=== PATIENT | male | born 1985 ===

== ENCOUNTER 2019-01-13 12:20 | Day surgery (SDC) | payer OTHER | END 2019-01-13 22:58 | disposition home or self-care (01) | LOC: WOUND 12:20 | DX: L89.892 Pressure ulcer of other site, stage 2 (principal); Q05.9 Spina bifida, unspecified; Z91.040 Latex allergy status | CPT/HCPCS: G0463 ==

== ENCOUNTER 2019-01-20 11:05 | Day surgery (SDC) | payer OTHER | END 2019-01-20 23:45 | disposition home or self-care (01) | LOC: WOUND 11:05 | DX: L89.892 Pressure ulcer of other site, stage 2 (principal); Q05.9 Spina bifida, unspecified; Z91.040 Latex allergy status ==

== ENCOUNTER 2019-01-29 11:02 | Day surgery (SDC) | payer OTHER | END 2019-01-29 23:41 | disposition home or self-care (01) | LOC: WOUND 11:02 | DX: L89.892 Pressure ulcer of other site, stage 2 (principal); Q05.9 Spina bifida, unspecified | CPT/HCPCS: G0463 ==

== ENCOUNTER 2019-02-05 14:36 | Day surgery (SDC) | payer OTHER | END 2019-02-05 22:46 | disposition home or self-care (01) | LOC: WOUND 14:36 | DX: L89.892 Pressure ulcer of other site, stage 2 (principal); Q05.9 Spina bifida, unspecified ==

== ENCOUNTER 2019-02-11 00:29 | Day surgery (SDC) | payer OTHER | END 2019-02-11 23:03 | disposition home or self-care (01) | LOC: WOUND 00:29 | DX: I96 Gangrene, not elsewhere classified (principal); L89.152 Pressure ulcer of sacral region, stage 2; Q05.4 Unspecified spina bifida with hydrocephalus; N31.9 Neuromuscular dysfunction of bladder, unspecified; Z98.2 Presence of cerebrospinal fluid drainage device; Z91.040 Latex allergy status | CPT/HCPCS: G0463 ==

== ENCOUNTER 2019-02-24 00:33 | Day surgery (SDC) | payer OTHER | END 2019-02-24 22:43 | disposition home or self-care (01) | LOC: WOUND 00:33 | DX: I96 Gangrene, not elsewhere classified (principal); L89.152 Pressure ulcer of sacral region, stage 2; Q05.2 Lumbar spina bifida with hydrocephalus; K59.2 Neurogenic bowel, not elsewhere classified; Z93.3 Colostomy status; Z98.2 Presence of cerebrospinal fluid drainage device; Z91.040 Latex allergy status; Z79.899 Other long term (current) drug therapy | CPT/HCPCS: G0463 ==

== ENCOUNTER 2019-03-10 00:17 | Day surgery (SDC) | payer OTHER | END 2019-03-10 22:51 | disposition home or self-care (01) | LOC: WOUND 00:17 | DX: L89.152 Pressure ulcer of sacral region, stage 2 (principal); Q05.9 Spina bifida, unspecified ==

== ENCOUNTER 2019-03-17 00:17 | Day surgery (SDC) | payer OTHER | END 2019-03-17 23:04 | disposition home or self-care (01) | LOC: WOUND 00:17 | DX: L89.152 Pressure ulcer of sacral region, stage 2 (principal); Q05.9 Spina bifida, unspecified | CPT/HCPCS: G0463 ==

== ENCOUNTER 2019-03-24 00:19 | Day surgery (SDC) | payer OTHER | END 2019-03-24 22:52 | disposition home or self-care (01) | LOC: WOUND 00:19 | DX: L89.152 Pressure ulcer of sacral region, stage 2 (principal); Q05.9 Spina bifida, unspecified | CPT/HCPCS: G0463 ==

== ENCOUNTER 2019-03-31 00:24 | Day surgery (SDC) | payer OTHER | END 2019-03-31 22:01 | LOC: WOUND 00:24 | DX: L89.152 Pressure ulcer of sacral region, stage 2 (principal); Q05.9 Spina bifida, unspecified ==

== ENCOUNTER 2019-04-08 00:11 | Day surgery (SDC) | payer OTHER | END 2019-04-08 22:43 | disposition home or self-care (01) | LOC: WOUND 00:11 | DX: L89.152 Pressure ulcer of sacral region, stage 2 (principal); Q05.9 Spina bifida, unspecified ==

== ENCOUNTER 2019-04-14 03:18 | Day surgery (SDC) | payer OTHER | END 2019-04-14 22:49 | disposition home or self-care (01) | LOC: WOUND 03:18 | DX: L89.152 Pressure ulcer of sacral region, stage 2 (principal); Q05.9 Spina bifida, unspecified ==

== ENCOUNTER 2019-04-21 | Day surgery (SDC) | payer OTHER | END 2019-05-10 22:37 | disposition home or self-care (01) | LOC: WOUND | DX: L89.152 Pressure ulcer of sacral region, stage 2 (principal); Q05.9 Spina bifida, unspecified ==

== ENCOUNTER 2019-04-28 00:33 | Day surgery (SDC) | payer OTHER | END 2019-04-28 23:12 | disposition home or self-care (01) | LOC: WOUND 00:33 | DX: L89.892 Pressure ulcer of other site, stage 2 (principal); Q05.9 Spina bifida, unspecified | CPT/HCPCS: G0463 ==

== ENCOUNTER 2019-05-12 00:23 | Day surgery (SDC) | payer OTHER | END 2019-05-12 22:37 | disposition home or self-care (01) | LOC: WOUND 00:23 | DX: L89.152 Pressure ulcer of sacral region, stage 2 (principal); Q05.9 Spina bifida, unspecified; Z91.040 Latex allergy status ==

== ENCOUNTER 2019-05-26 00:27 | Day surgery (SDC) | payer OTHER | END 2019-05-26 22:38 | disposition home or self-care (01) | LOC: WOUND 00:27 | DX: L89.892 Pressure ulcer of other site, stage 2 (principal); Q05.9 Spina bifida, unspecified ==

== ENCOUNTER 2019-06-16 00:16 | Day surgery (SDC) | payer OTHER | END 2019-06-16 22:39 | disposition home or self-care (01) | LOC: WOUND 00:16 | DX: L89.152 Pressure ulcer of sacral region, stage 2 (principal); Q05.9 Spina bifida, unspecified ==

== ENCOUNTER 2019-07-07 00:24 | Day surgery (SDC) | payer OTHER | END 2019-07-07 22:50 | disposition home or self-care (01) | LOC: WOUND 00:24 | DX: L89.892 Pressure ulcer of other site, stage 2 (principal); Q05.9 Spina bifida, unspecified; N31.9 Neuromuscular dysfunction of bladder, unspecified; K59.2 Neurogenic bowel, not elsewhere classified ==

== ENCOUNTER 2019-07-15 00:11 | Day surgery (SDC) | payer OTHER | END 2019-07-15 23:16 | disposition home or self-care (01) | LOC: WOUND 00:11 | DX: L89.892 Pressure ulcer of other site, stage 2 (principal); Q05.9 Spina bifida, unspecified | CPT/HCPCS: G0463 ==

== ENCOUNTER 2019-07-28 00:14 | Day surgery (SDC) | payer OTHER | END 2019-07-28 22:55 | disposition home or self-care (01) | LOC: WOUND 00:14 | DX: L89.892 Pressure ulcer of other site, stage 2 (principal); Q05.9 Spina bifida, unspecified | CPT/HCPCS: G0463 ==

== ENCOUNTER 2019-09-16 00:28 | Day surgery (SDC) | payer OTHER | END 2019-09-16 22:37 | disposition home or self-care (01) | LOC: WOUND 00:28 | DX: L89.892 Pressure ulcer of other site, stage 2 (principal); Q05.9 Spina bifida, unspecified | CPT/HCPCS: G0463 ==

== ENCOUNTER 2019-10-20 00:28 | Day surgery (SDC) | payer OTHER | END 2019-10-20 22:37 | disposition home or self-care (01) | LOC: WOUND 00:28 | DX: L89.892 Pressure ulcer of other site, stage 2 (principal); Q05.9 Spina bifida, unspecified | CPT/HCPCS: G0463 ==

== ENCOUNTER 2019-11-11 00:15 | Day surgery (SDC) | payer OTHER | END 2019-11-11 22:35 | disposition home or self-care (01) | LOC: WOUND 00:15 | DX: L89.892 Pressure ulcer of other site, stage 2 (principal); Q05.9 Spina bifida, unspecified | CPT/HCPCS: G0463 ==

== ENCOUNTER 2019-12-02 00:47 | Day surgery (SDC) | payer OTHER | END 2019-12-02 08:41 | disposition home or self-care (01) | LOC: WOUND 00:47 | DX: L89.892 Pressure ulcer of other site, stage 2 (principal); Q05.9 Spina bifida, unspecified ==

== ENCOUNTER 2019-12-22 02:24 | Day surgery (SDC) | payer OTHER | END 2019-12-22 23:16 | disposition home or self-care (01) | LOC: WOUND 02:24 | DX: I96 Gangrene, not elsewhere classified (principal); L89.152 Pressure ulcer of sacral region, stage 2; Q05.4 Unspecified spina bifida with hydrocephalus; N31.9 Neuromuscular dysfunction of bladder, unspecified; K59.2 Neurogenic bowel, not elsewhere classified; Z93.3 Colostomy status; Z98.2 Presence of cerebrospinal fluid drainage device; Z91.040 Latex allergy status | CPT/HCPCS: G0463 ==

== ENCOUNTER 2020-01-18 00:34 | Day surgery (SDC) | payer OTHER | END 2020-01-18 22:34 | disposition home or self-care (01) | LOC: WOUND 00:34 | DX: I96 Gangrene, not elsewhere classified (principal); L89.152 Pressure ulcer of sacral region, stage 2; Q05.4 Unspecified spina bifida with hydrocephalus; N31.9 Neuromuscular dysfunction of bladder, unspecified; Z98.2 Presence of cerebrospinal fluid drainage device; Z93.3 Colostomy status; Z91.040 Latex allergy status | CPT/HCPCS: G0463 ==

== ENCOUNTER 2020-02-01 00:39 | Day surgery (SDC) | payer OTHER | END 2020-02-01 06:19 | disposition home or self-care (01) | LOC: WOUND 00:39 | DX: I96 Gangrene, not elsewhere classified (principal); L89.152 Pressure ulcer of sacral region, stage 2; Q05.4 Unspecified spina bifida with hydrocephalus; N31.9 Neuromuscular dysfunction of bladder, unspecified; K59.2 Neurogenic bowel, not elsewhere classified; Z93.3 Colostomy status; Z98.2 Presence of cerebrospinal fluid drainage device; Z91.040 Latex allergy status ==

== ENCOUNTER 2020-02-18 01:50 | Day surgery (SDC) | payer OTHER | END 2020-02-18 11:20 | disposition home or self-care (01) | LOC: WOUND 01:50 | DX: L89.152 Pressure ulcer of sacral region, stage 2 (principal); Q05.4 Unspecified spina bifida with hydrocephalus; N31.9 Neuromuscular dysfunction of bladder, unspecified; K59.2 Neurogenic bowel, not elsewhere classified; Z98.2 Presence of cerebrospinal fluid drainage device; Z93.3 Colostomy status | CPT/HCPCS: 87070; 87075; 87077; 87147; 87186; 87205 ==

== ENCOUNTER 2020-02-24 00:18 | Day surgery (SDC) | payer OTHER | END 2020-02-24 23:51 | disposition home or self-care (01) | LOC: WOUND 00:18 | DX: L89.892 Pressure ulcer of other site, stage 2 (principal); Q05.9 Spina bifida, unspecified; N31.9 Neuromuscular dysfunction of bladder, unspecified; K59.2 Neurogenic bowel, not elsewhere classified; Z93.3 Colostomy status | CPT/HCPCS: G0463 ==

== ENCOUNTER 2020-03-02 01:33 | Day surgery (SDC) | payer OTHER | END 2020-03-02 22:36 | disposition home or self-care (01) | LOC: WOUND 01:33 | DX: L89.152 Pressure ulcer of sacral region, stage 2 (principal); L89.892 Pressure ulcer of other site, stage 2; Q05.9 Spina bifida, unspecified | CPT/HCPCS: G0463 ==

== ENCOUNTER 2020-03-10 12:27 | Day surgery (SDC) | payer OTHER | END 2020-03-10 22:42 | disposition home or self-care (01) | LOC: WOUND 12:27 | DX: L89.153 Pressure ulcer of sacral region, stage 3 (principal); Q05.9 Spina bifida, unspecified | CPT/HCPCS: G0463 ==

== ENCOUNTER 2020-03-23 00:37 | Day surgery (SDC) | payer OTHER | END 2020-03-23 22:45 | disposition home or self-care (01) | LOC: WOUND 00:37 | DX: L89.152 Pressure ulcer of sacral region, stage 2 (principal); Q05.4 Unspecified spina bifida with hydrocephalus; N31.9 Neuromuscular dysfunction of bladder, unspecified; K59.2 Neurogenic bowel, not elsewhere classified; Z93.3 Colostomy status ==

== ENCOUNTER 2020-04-06 00:17 | Day surgery (SDC) | payer OTHER | END 2020-04-06 23:43 | disposition home or self-care (01) | LOC: WOUND 00:17 | DX: L89.152 Pressure ulcer of sacral region, stage 2 (principal); Q05.9 Spina bifida, unspecified; Z93.3 Colostomy status | CPT/HCPCS: G0463 ==

== ENCOUNTER 2020-04-13 00:14 | Day surgery (SDC) | payer OTHER | END 2020-04-13 23:00 | disposition home or self-care (01) | LOC: WOUND 00:14 | DX: L89.152 Pressure ulcer of sacral region, stage 2 (principal); Q05.4 Unspecified spina bifida with hydrocephalus; N31.9 Neuromuscular dysfunction of bladder, unspecified; K59.2 Neurogenic bowel, not elsewhere classified; Z93.3 Colostomy status | CPT/HCPCS: G0463 ==

== ENCOUNTER 2020-04-27 00:22 | Day surgery (SDC) | payer OTHER | END 2020-04-27 23:00 | disposition home or self-care (01) | LOC: WOUND 00:22 | DX: L89.152 Pressure ulcer of sacral region, stage 2 (principal); Q05.9 Spina bifida, unspecified ==

== ENCOUNTER 2020-05-31 00:37 | Day surgery (SDC) | payer OTHER | END 2020-05-31 22:42 | disposition home or self-care (01) | LOC: WOUND 00:37 | DX: S31.000D Unspecified open wound of lower back and pelvis without penetration into retroperitoneum, subsequent encounter (principal); X58.XXXD Exposure to other specified factors, subsequent encounter; Q05.9 Spina bifida, unspecified | CPT/HCPCS: G0463 ==

== ENCOUNTER 2020-07-05 03:25 | Day surgery (SDC) | payer OTHER | END 2020-07-05 23:17 | disposition home or self-care (01) | LOC: WOUND 03:25 | DX: L89.153 Pressure ulcer of sacral region, stage 3 (principal); S31.000D Unspecified open wound of lower back and pelvis without penetration into retroperitoneum, subsequent encounter; X58.XXXD Exposure to other specified factors, subsequent encounter; Q05.9 Spina bifida, unspecified | CPT/HCPCS: G0463 ==

== ENCOUNTER 2020-07-12 04:39 | Day surgery (SDC) | payer OTHER | END 2020-07-12 22:54 | disposition home or self-care (01) | LOC: WOUND 04:39 | DX: T81.31XA Disruption of external operation (surgical) wound, not elsewhere classified, initial encounter (principal); Q05.9 Spina bifida, unspecified; Y83.8 Other surgical procedures as the cause of abnormal reaction of the patient, or of later complication, without mention of misadventure at the time of the procedure | CPT/HCPCS: G0463 ==

== ENCOUNTER 2020-07-20 03:50 | Day surgery (SDC) | payer OTHER | END 2020-07-20 22:45 | disposition home or self-care (01) | LOC: WOUND 03:50 | DX: S31.000D Unspecified open wound of lower back and pelvis without penetration into retroperitoneum, subsequent encounter (principal); X58.XXXD Exposure to other specified factors, subsequent encounter; Q05.9 Spina bifida, unspecified | CPT/HCPCS: G0463 ==

== ENCOUNTER 2020-08-03 00:30 | Day surgery (SDC) | payer OTHER | END 2020-08-03 22:41 | disposition home or self-care (01) | LOC: WOUND 00:30 | DX: L89.159 Pressure ulcer of sacral region, unspecified stage (principal); S31.000D Unspecified open wound of lower back and pelvis without penetration into retroperitoneum, subsequent encounter; X58.XXXD Exposure to other specified factors, subsequent encounter; Q05.9 Spina bifida, unspecified; Z91.040 Latex allergy status | CPT/HCPCS: G0463 ==

== ENCOUNTER 2020-08-17 01:38 | Day surgery (SDC) | payer OTHER | END 2020-08-17 23:29 | disposition home or self-care (01) | LOC: WOUND 01:38 | DX: Z09 Encounter for follow-up examination after completed treatment for conditions other than malignant neoplasm (principal); Q05.9 Spina bifida, unspecified; Z87.2 Personal history of diseases of the skin and subcutaneous tissue | CPT/HCPCS: G0463 ==

== ENCOUNTER 2020-12-06 01:32 | Day surgery (SDC) | payer OTHER | END 2020-12-06 22:59 | disposition home or self-care (01) | LOC: WOUND 01:32 | DX: L89.892 Pressure ulcer of other site, stage 2 (principal) | CPT/HCPCS: G0463 ==

== ENCOUNTER 2020-12-14 08:00 | Day surgery (SDC) | payer OTHER | END 2020-12-14 23:59 | disposition home or self-care (01) | LOC: WOUND 08:00 | DX: L89.152 Pressure ulcer of sacral region, stage 2 (principal) | CPT/HCPCS: G0463 ==

== ENCOUNTER 2020-12-26 03:30 | Day surgery (SDC) | payer OTHER | END 2020-12-26 23:36 | disposition home or self-care (01) | LOC: WOUND 03:30 | DX: L89.152 Pressure ulcer of sacral region, stage 2 (principal) | CPT/HCPCS: G0463 ==

== ENCOUNTER 2021-01-09 03:04 | Day surgery (SDC) | payer OTHER | END 2021-01-09 22:44 | disposition home or self-care (01) | LOC: WOUND 03:04 | DX: L89.892 Pressure ulcer of other site, stage 2 (principal) | CPT/HCPCS: G0463 ==

== ENCOUNTER 2021-01-23 01:15 | Day surgery (SDC) | payer OTHER | END 2021-01-23 23:06 | disposition home or self-care (01) | LOC: WOUND 01:15 | DX: L89.152 Pressure ulcer of sacral region, stage 2 (principal) | CPT/HCPCS: G0463 ==

== ENCOUNTER 2021-02-06 05:01 | Day surgery (SDC) | payer OTHER | END 2021-02-06 22:40 | disposition home or self-care (01) | LOC: WOUND 05:01 | DX: L89.892 Pressure ulcer of other site, stage 2 (principal) | CPT/HCPCS: G0463 ==

== ENCOUNTER 2021-02-14 05:18 | Day surgery (SDC) | payer OTHER | END 2021-02-14 23:40 | disposition home or self-care (01) | LOC: WOUND 05:18 | DX: L89.892 Pressure ulcer of other site, stage 2 (principal) | CPT/HCPCS: G0463 ==

== ENCOUNTER 2021-02-28 00:40 | Day surgery (SDC) | payer OTHER | END 2021-02-28 22:46 | disposition home or self-care (01) | LOC: WOUND 00:40 | DX: L89.152 Pressure ulcer of sacral region, stage 2 (principal) | CPT/HCPCS: G0463 ==

== ENCOUNTER 2021-03-14 03:32 | Day surgery (SDC) | payer OTHER | END 2021-03-15 02:16 | disposition home or self-care (01) | LOC: WOUND 03:32 | DX: L89.152 Pressure ulcer of sacral region, stage 2 (principal); Q05.4 Unspecified spina bifida with hydrocephalus; Z98.2 Presence of cerebrospinal fluid drainage device | CPT/HCPCS: A9270; G0463 ==

== ENCOUNTER 2021-04-04 00:54 | Day surgery (SDC) | payer OTHER | END 2021-04-04 22:43 | disposition home or self-care (01) | LOC: WOUND 00:54 | DX: L89.152 Pressure ulcer of sacral region, stage 2 (principal); Q05.4 Unspecified spina bifida with hydrocephalus; Z98.2 Presence of cerebrospinal fluid drainage device | CPT/HCPCS: G0463 ==

== ENCOUNTER 2021-04-18 03:36 | Day surgery (SDC) | payer OTHER | END 2021-04-18 22:50 | disposition home or self-care (01) | LOC: WOUND 03:36 | DX: L89.152 Pressure ulcer of sacral region, stage 2 (principal); Q05.9 Spina bifida, unspecified | CPT/HCPCS: G0463 ==

== ENCOUNTER 2021-05-01 02:22 | Day surgery (SDC) | payer OTHER | END 2021-05-01 23:13 | disposition home or self-care (01) | LOC: WOUND 02:22 | DX: L89.153 Pressure ulcer of sacral region, stage 3 (principal); Q05.9 Spina bifida, unspecified | CPT/HCPCS: G0463 ==

== ENCOUNTER 2021-05-15 08:00 | Day surgery (SDC) | payer OTHER | END 2021-05-15 23:59 | disposition home or self-care (01) | LOC: WOUND 08:00 | DX: L89.152 Pressure ulcer of sacral region, stage 2 (principal); Q05.9 Spina bifida, unspecified ==

== ENCOUNTER 2021-06-05 01:16 | Day surgery (SDC) | payer OTHER | END 2021-06-05 23:44 | disposition home or self-care (01) | LOC: WOUND 01:16 | DX: L89.152 Pressure ulcer of sacral region, stage 2 (principal); Q05.9 Spina bifida, unspecified | CPT/HCPCS: G0463 ==

== ENCOUNTER 2021-06-19 03:04 | Day surgery (SDC) | payer OTHER | END 2021-06-19 23:24 | disposition home or self-care (01) | LOC: WOUND 03:04 | DX: L89.152 Pressure ulcer of sacral region, stage 2 (principal); Q05.9 Spina bifida, unspecified | CPT/HCPCS: A9270; G0463 ==

== ENCOUNTER 2021-07-03 08:00 | Day surgery (SDC) | payer OTHER | END 2021-07-03 23:59 | disposition home or self-care (01) | LOC: WOUND 08:00 | DX: L89.152 Pressure ulcer of sacral region, stage 2 (principal); Q05.9 Spina bifida, unspecified; G91.9 Hydrocephalus, unspecified; Z98.2 Presence of cerebrospinal fluid drainage device | CPT/HCPCS: A9270; G0463 ==

== ENCOUNTER 2021-07-17 01:11 | Day surgery (SDC) | payer OTHER | END 2021-07-17 23:18 | disposition home or self-care (01) | LOC: WOUND 01:11 | DX: L89.152 Pressure ulcer of sacral region, stage 2 (principal); Q05.9 Spina bifida, unspecified | CPT/HCPCS: 11104; A9270 ==

== ENCOUNTER 2021-07-31 03:37 | Day surgery (SDC) | payer OTHER | END 2021-07-31 22:34 | disposition home or self-care (01) | LOC: WOUND 03:37 | DX: L89.153 Pressure ulcer of sacral region, stage 3 (principal); Q05.9 Spina bifida, unspecified | CPT/HCPCS: Q4133 ==

== ENCOUNTER 2021-08-07 05:35 | Day surgery (SDC) | payer OTHER | END 2021-08-07 22:40 | disposition home or self-care (01) | LOC: WOUND 05:35 | DX: L89.152 Pressure ulcer of sacral region, stage 2 (principal); Q05.9 Spina bifida, unspecified | CPT/HCPCS: G0463 ==

== ENCOUNTER 2021-08-21 10:31 | Day surgery (SDC) | payer OTHER | END 2021-08-21 23:58 | disposition home or self-care (01) | LOC: WOUND 10:31 | DX: L89.152 Pressure ulcer of sacral region, stage 2 (principal); Q05.9 Spina bifida, unspecified | CPT/HCPCS: Q4133 ==

== ENCOUNTER 2021-08-27 07:19 | Day surgery (SDC) | payer OTHER | END 2021-08-27 23:05 | disposition home or self-care (01) | LOC: WOUND 07:19 | DX: L89.152 Pressure ulcer of sacral region, stage 2 (principal); Q05.9 Spina bifida, unspecified | CPT/HCPCS: G0463 ==

== ENCOUNTER 2021-09-03 05:42 | Day surgery (SDC) | payer OTHER | END 2021-09-03 23:23 | disposition home or self-care (01) | LOC: WOUND 05:42 | DX: L89.152 Pressure ulcer of sacral region, stage 2 (principal); Q05.4 Unspecified spina bifida with hydrocephalus | CPT/HCPCS: G0463 ==

== ENCOUNTER 2021-09-17 01:41 | Day surgery (SDC) | payer OTHER | END 2021-09-17 23:03 | disposition home or self-care (01) | LOC: WOUND 01:41 | DX: Z09 Encounter for follow-up examination after completed treatment for conditions other than malignant neoplasm (principal); Q05.4 Unspecified spina bifida with hydrocephalus; N31.9 Neuromuscular dysfunction of bladder, unspecified; K59.2 Neurogenic bowel, not elsewhere classified; Z87.2 Personal history of diseases of the skin and subcutaneous tissue | CPT/HCPCS: A9270; G0463 ==

== ENCOUNTER 2023-03-17 02:23 | Day surgery (SDC) | payer OTHER | END 2023-03-17 23:00 | disposition home or self-care (01) | LOC: WOUND 02:23 | DX: L89.152 Pressure ulcer of sacral region, stage 2 (principal); Z91.040 Latex allergy status; Z82.49 Family history of ischemic heart disease and other diseases of the circulatory system | CPT/HCPCS: G0463 ==

== ENCOUNTER 2023-05-16 03:04 | Day surgery (SDC) | payer OTHER | END 2023-05-16 23:25 | disposition home or self-care (01) | LOC: WOUND 03:04 | DX: L89.153 Pressure ulcer of sacral region, stage 3 (principal); Q05.9 Spina bifida, unspecified; Z91.040 Latex allergy status | CPT/HCPCS: A6213; G0463 ==

== ENCOUNTER 2023-06-13 04:09 | Day surgery (SDC) | payer OTHER | END 2023-06-13 22:53 | disposition home or self-care (01) | LOC: WOUND 04:09 | DX: L89.103 Pressure ulcer of unspecified part of back, stage 3 (principal); Q05.4 Unspecified spina bifida with hydrocephalus | CPT/HCPCS: A6213; G0463 ==

== ENCOUNTER 2023-06-20 05:24 | Day surgery (SDC) | payer OTHER | END 2023-06-20 22:34 | disposition home or self-care (01) | LOC: WOUND 05:24 | DX: L89.103 Pressure ulcer of unspecified part of back, stage 3 (principal); L89.153 Pressure ulcer of sacral region, stage 3; Q05.4 Unspecified spina bifida with hydrocephalus ==

== ENCOUNTER 2023-12-08 09:04 | Day surgery (SDC) | payer OTHER | END 2023-12-08 22:45 | disposition home or self-care (01) | LOC: WOUND 09:04 | DX: L89.153 Pressure ulcer of sacral region, stage 3 (principal); Q05.4 Unspecified spina bifida with hydrocephalus; Z98.2 Presence of cerebrospinal fluid drainage device; Z91.040 Latex allergy status | CPT/HCPCS: G0463 ==

== ENCOUNTER 2023-12-15 02:31 | Day surgery (SDC) | payer OTHER | END 2023-12-15 22:48 | disposition home or self-care (01) | LOC: WOUND 02:31 | DX: L89.153 Pressure ulcer of sacral region, stage 3 (principal); Q05.9 Spina bifida, unspecified | CPT/HCPCS: A6213; G0463 ==

== ENCOUNTER → 2023-12-23 | Day surgery (SDC) | payer OTHER | LOC: WOUND 02:25 | DX: L89.153 Pressure ulcer of sacral region, stage 3 (principal); Q05.4 Unspecified spina bifida with hydrocephalus; Z98.2 Presence of cerebrospinal fluid drainage device | CPT/HCPCS: A6213; G0463 ==

== ENCOUNTER 2024-01-13 05:29 | Day surgery (SDC) | payer OTHER | END 2024-01-13 23:34 | disposition home or self-care (01) | LOC: WOUND 05:29 | DX: L89.153 Pressure ulcer of sacral region, stage 3 (principal); Q05.9 Spina bifida, unspecified | CPT/HCPCS: A6213; Q4133 ==

== ENCOUNTER 2024-01-20 09:05 | Day surgery (SDC) | payer OTHER | END 2024-01-20 23:00 | disposition home or self-care (01) | LOC: WOUND 09:05 | DX: L89.153 Pressure ulcer of sacral region, stage 3 (principal); Q05.9 Spina bifida, unspecified | CPT/HCPCS: Q4133 ==

== ENCOUNTER 2024-01-27 04:47 | Day surgery (SDC) | payer OTHER | END 2024-01-27 23:00 | disposition home or self-care (01) | LOC: WOUND 04:47 | DX: L89.153 Pressure ulcer of sacral region, stage 3 (principal); Q05.4 Unspecified spina bifida with hydrocephalus | CPT/HCPCS: G0463 ==

== ENCOUNTER 2024-02-02 04:50 | Day surgery (SDC) | payer OTHER | END 2024-02-02 22:56 | disposition home or self-care (01) | LOC: WOUND 04:50 | DX: L89.153 Pressure ulcer of sacral region, stage 3 (principal); Q05.9 Spina bifida, unspecified | CPT/HCPCS: G0463 ==

== ENCOUNTER 2024-02-12 05:59 | Day surgery (SDC) | payer OTHER | END 2024-02-12 23:00 | disposition home or self-care (01) | LOC: WOUND 05:59 | DX: L89.153 Pressure ulcer of sacral region, stage 3 (principal); Q05.4 Unspecified spina bifida with hydrocephalus | CPT/HCPCS: G0463 ==

== ENCOUNTER 2024-02-24 08:13 | Day surgery (SDC) | payer OTHER | END 2024-02-24 23:00 | disposition home or self-care (01) | LOC: WOUND 08:13 | DX: L89.153 Pressure ulcer of sacral region, stage 3 (principal); Q05.4 Unspecified spina bifida with hydrocephalus; Z98.2 Presence of cerebrospinal fluid drainage device | CPT/HCPCS: Q4133 ==

== ENCOUNTER 2024-03-04 05:21 | Day surgery (SDC) | payer OTHER | END 2024-03-04 23:00 | LOC: WOUND 05:21 | DX: L89.153 Pressure ulcer of sacral region, stage 3 (principal); Q05.4 Unspecified spina bifida with hydrocephalus | CPT/HCPCS: Q4133 ==

== ENCOUNTER 2024-03-09 | Day surgery (SDC) | payer OTHER | END 2024-03-09 23:00 | disposition home or self-care (01) | LOC: WOUND | DX: L89.153 Pressure ulcer of sacral region, stage 3 (principal); Q05.4 Unspecified spina bifida with hydrocephalus | CPT/HCPCS: Q4133 ==

== ENCOUNTER 2024-03-18 05:24 | Day surgery (SDC) | payer OTHER | END 2024-03-18 23:00 | disposition home or self-care (01) | LOC: WOUND 05:24 | DX: L89.153 Pressure ulcer of sacral region, stage 3 (principal); Q05.4 Unspecified spina bifida with hydrocephalus | CPT/HCPCS: G0463 ==

== ENCOUNTER 2024-03-30 00:40 | Day surgery (SDC) | payer OTHER | END 2024-03-30 22:46 | disposition home or self-care (01) | LOC: WOUND 00:40 | DX: L89.153 Pressure ulcer of sacral region, stage 3 (principal); Q05.9 Spina bifida, unspecified | CPT/HCPCS: G0463 ==

== ENCOUNTER 2024-05-04 10:18 | Inpatient (IN) | payer OTHER ==
[~2024-05-04] VITALS: Ht 152.4 cm; Wt 90.5 kg
[2024-05-04] MEDS ORDERED: NS 1,000 ML IV SCH ×2 (10:35→17:00)
[2024-05-04] MEDS ORDERED: Ondansetron HCl 2 MG / ML 2ML Vial IV ONE (10:35)
[2024-05-04] MEDS ORDERED: Ketorolac Tromethamine 30mg Vial IV ONE (10:35)
[2024-05-04 11:03] LABS: Hematocrit 28.1 % (37.0-53.0); Mean Corpuscular HGB 19.7 pg (26.0-34.0); Mean Corpuscular HGB Conc 28.5 g/dL (31.5-36.5); Mean Corpuscular Volume 69 fL (80-100); NRBC ABSOLUTE 0.06 K/mm3 (0.00-0.02); NRBC Auto 0.6 /100 WBC (0.0-0.2); Platelet Count 321 K/mm3 (150-400); RDW Coefficient Variation 17.2 % (11.7-14.2); RDW Standard Deviation 42.8 fL (35.1-46.3); Red Blood Cell Count 4.06 M/mm3 (4.30-5.90); White Blood Cell Count 10.41 K/mm3 (4.00-11.30)
[2024-05-04] MEDS ORDERED: Azithromycin 500 MG in NS 250 ML IV ONE (11:30)
[2024-05-04] MEDS ORDERED: CefTRIAXone Sodium 1,000 MG in NS 50 ML IV ONE (11:30)
[2024-05-04 11:36] LABS: Albumin/Globulin Ratio 0.6 (0.8-1.8); Bilirubin, Total 0.4 mg/dL (0.1-1.0); Calcium, Blood 8.3 mg/dL (8.5-10.1); Creatinine, Blood 1.08 mg/dL (0.60-1.20); Globulin, Blood 4.7 g/dL (2.2-4.0); Magnesium, Blood 2.1 mg/dL (1.6-2.4); Potassium, Blood 3.9 mmol/L (3.5-5.5); Total Protein, Blood 7.7 g/dL (6.4-8.2)
[2024-05-04 11:39] LABS: BAND PERCENT MAN 30 % (0-8); BASOPHILS PERCENT MAN 0 % (0-2); EOSINOPHILS PERCENT MAN 0 % (0-6); LYMPHOCYTES ABSOLUTE MAN 0.62 K/mm3 (0.84-5.20); LYMPHOCYTES PERCENT MAN 6 % (21-46); METAMYELOCYTE PERCENT MAN 1 % (0-0); MONOCYTES ABSOLUTE MAN 0.93 K/mm3 (0.16-1.47); MONOCYTES PERCENT MAN 9 % (4-13); NEUTROPHILS ABSOLUTE MAN 8.74 K/mm3 (1.96-9.15); SEG NEUTROPHILS PERCENT MAN 54 % (41-73); TOTAL CELLS COUNTED 100
[2024-05-04] MEDS ORDERED: BISA5EC PO (12:47)
[2024-05-04] MEDS ORDERED: FLU VACC TS2024-25(6MOS UP)/PF 45 MCG/0.5 ML SYRINGE IM SCH (13:45)
[2024-05-04 14:47] LABS: IMMATURE RETIC FRACTION 5.2 % (2.3-16.0); RETIC HGB EQUIVALENT 14.4 pg (28.20-36.60); RETICULOCYTE ABSOLUTE 0.0135 M/mm3 (0.0200-0.1100); RETICULOCYTE COUNT PERCENT 0.33 % (0.50-2.50)
[2024-05-04 15:02] LABS: Percent Saturation 2.5 % (20.0-50.0)
[2024-05-04 15:20] VITALS: BP 138/80
[2024-05-04] MEDS ORDERED: Hydrocortisone Sod Succinate 100 MG Vial IV SCH (16:00)
[2024-05-04 16:12] LABS: Adenovirus Not Detected (NOT DETECT); Bordetella pertussis Not Detected (NOT DETECT); Chlamydophila pneumoniae Not Detected (NOT DETECT); Coronavirus 229E Not Detected (NOT DETECT); Coronavirus HKU1 Not Detected (NOT DETECT); Coronavirus NL63 Not Detected (NOT DETECT); Coronavirus OC43 Not Detected (NOT DETECT); Human Metapneumovirus Not Detected (NOT DETECT); Human Rhinovirus/Enterovirus Not Detected (NOT DETECT); Influenza A/2009-H1 Not Detected (NOT DETECT); Influenza A/H1 Not Detected (NOT DETECT); Influenza A/H3 Not Detected (NOT DETECT); Influenza B Not Detected (NOT DETECT); Mycoplasma pneumoniae Not Detected (NOT DETECT); Parainfluenza Virus 1 Not Detected (NOT DETECT); Parainfluenza Virus 2 Not Detected (NOT DETECT); Parainfluenza Virus 3 Not Detected (NOT DETECT); Parainfluenza Virus 4 Not Detected (NOT DETECT); Respiratory Syncytial Virus Detected (NOT DETECT); SARS-Cov-2 (COVID-19), BioFire Not Detected (NOT DETECT)
[2024-05-04 16:33] VITALS: BP 132/85
[2024-05-04] MEDS ORDERED: Miconazole Nitrate 28 GM CREAM..G. TOP SCH (17:00)
--- NOTE | 2024-05-04 19:32 | NUR ---
PCU Admit / End of Shift Pt brought to PCU-15 by marely from ER at approx 1500. Pt slid from [facility] to PCU bed by 4 staff members. Pt on NRB, transitioned to airvo by RT. VSS. Spo2 > 92% on airvo: 40L 60%. Pt w/ thick ramirez sputum. Pt self suctioning. Pt NPO. MD w/ instruction for water okay if pt tolerating & will reassess diet when respiratory status improves. Monitor showing SR-ST, HR 90s-110. Pt w/ cecostomy to R ABD. Site red. Pt mother at bedside providing care, cleaning site & changing gauze. Pt mother providing care & insuring pt leaving airvo canula in nose. Report given to [facility] shift lead RN.
[2024-05-04 19:38] VITALS: BP 130/70
[2024-05-04] MEDS ORDERED: Melatonin 5 MG Tablet PO PRN (19:45)
[2024-05-04 20:00] VITALS: BP 126/80
[2024-05-04] MEDS ORDERED: Lactobacil 2-S.Thermo-Bifido 1 1 Cap PO SCH (21:00)
[2024-05-04 23:29] VITALS: BP 116/68
[2024-05-05] VITALS (31 sets, daily range): BP systolic 90–138; BP diastolic 54–108
--- NOTE | 2024-05-05 02:30 | NUR ---
UPDATE CALL PLACED TO RESIDENT REGARDING PATIENT'S INCREASING LETHARGY. PATIENT RESTLESS DURING THE NIGHT, UNABLE TO SLEEP DURING THUS FAR INTO THE SHIFT. PATIENT WITH INCREASED ORAL SECRETIONS, CLINICAL SITTER AT BEDSIDE ASSISTING WITH SUCTION. PATIENT DIAPHORETIC AND PALE IN COLOR. ORDER RECEIVED FOR VBG.
[2024-05-05 02:45] LABS: Base Excess Venous 1.1 mmol/L; Bicarbonate Venous 24.9 mmol/L (24.0-30.0); PCO2 Venous 61.4 mmHg (38-42); pH Blood Venous 7.27 (7.34-7.37)
[2024-05-05 03:02] LABS: Hematocrit 27.6 % (37.0-53.0); Hemoglobin 7.7 g/dL (13.5-17.5); Mean Corpuscular HGB 19.8 pg (26.0-34.0); Mean Corpuscular HGB Conc 27.9 g/dL (31.5-36.5); Mean Corpuscular Volume 71 fL (80-100); Mean Platelet Volume 11.1 fL (9.1-12.4); NRBC ABSOLUTE 0.07 K/mm3 (0.00-0.02); NRBC Auto 1.2 /100 WBC (0.0-0.2); Platelet Count 321 K/mm3 (150-400); RDW Coefficient Variation 17.4 % (11.7-14.2); RDW Standard Deviation 44.4 fL (35.1-46.3); Red Blood Cell Count 3.89 M/mm3 (4.30-5.90); White Blood Cell Count 5.82 K/mm3 (4.00-11.30)
--- NOTE | 2024-05-05 03:04 | NUR ---
UPDATE RESIDENT UPDATED WITH CRITICAL VBG RESULTS. PER REPORT, PATIENT WAS UNABLE TO TOLERATE BIPAP WHILE IN THE ER. RESIDENT TO DISCUSS OPTIONS WITH DR. FRANCO. NO NEW ORDERS.
--- NOTE | 2024-05-05 03:21 | NUR ---
UPDATE CALL PLACED TO PATIENT'S MOM WITH UPDATE ON PATIENT'S STATUS. PATIENT'S MOM ALEX TO COME TO HOSPITAL. AWAITING HER ARRIVAL TO MAKE ANY DECISIONS. DR. FRANCO REVIEWING CHART.
[2024-05-05 03:23] LABS: Albumin, Blood 2.7 g/dL (3.4-5.0); Albumin/Globulin Ratio 0.6 (0.8-1.8); Bilirubin, Total 0.3 mg/dL (0.1-1.0); Bun/Creatinine Ratio 46.1 (12.0-20.0); Calcium, Blood 8.2 mg/dL (8.5-10.1); Creatinine, Blood 0.89 mg/dL (0.60-1.20); Globulin, Blood 4.5 g/dL (2.2-4.0); Potassium, Blood 4.5 mmol/L (3.5-5.5); Total Protein, Blood 7.2 g/dL (6.4-8.2)
--- NOTE | 2024-05-05 03:50 | NUR ---
UPDATE PATIENT'S MOM, ALEX, AT BEDSIDE. THIS RN AND RT DISCUSSING BIPAP AND OPTIONS TO KEEP PATIENT RELAXED. RT TO SET UP AND PLACE PATIENT ON BIPAP. ALEX REQUESTING MEDICATION TO ASSIST PATIENT TO RELAX. THIS RN EDUCATED THAT RT WILL ATTEMPT TO SEE HOW PATIENT REACTS/TOLERATES BIPAP. DR. FRANCO AWARE OF POSSIBILITY OF PATIENT NEEDING MEDICATION. ALEX TO STAY AT BEDSIDE AT THIS TIME.
[2024-05-05] MEDS ORDERED: LORazepam 2 MG/ML 1ML Injection IV ONE (04:05)
[2024-05-05 04:20] LABS: BAND PERCENT MAN 25 % (0-8); BASOPHILS PERCENT MAN 0 % (0-2); EOSINOPHILS PERCENT MAN 0 % (0-6); LYMPHOCYTES ABSOLUTE MAN 0.87 K/mm3 (0.84-5.20); LYMPHOCYTES PERCENT MAN 15 % (21-46); MONOCYTES ABSOLUTE MAN 0.52 K/mm3 (0.16-1.47); MONOCYTES PERCENT MAN 9 % (4-13); NEUTROPHILS ABSOLUTE MAN 4.42 K/mm3 (1.96-9.15); SEG NEUTROPHILS PERCENT MAN 51 % (41-73); TOTAL CELLS COUNTED 100
--- NOTE | 2024-05-05 05:19 | NUR ---
SHIFT SUMMARY PATIENT LETHARGIC, BUT ALERT, SEEMS TO BE AT BASELINE. MUMBLING OCCASIONAL WORDS. BP STABLE. ON TELE, SR DURING THE NIGHT. PATIENT PLACED ON BIPAP, SEE PREVIOUS NOTES. PATIENT'S MOM AT BEDSIDE SINCE AROUND 314. PATIENT MEDICATED TO ASSIST WITH TOLERATING BIPAP. AWAITNG REPEAT VBG. OTHERWISE, NO CHANGES.
[2024-05-05 06:48] LABS: Base Excess Venous 1.4 mmol/L; Bicarbonate Venous 25.4 mmol/L (24.0-30.0); PCO2 Venous 48.5 mmHg (38-42); pH Blood Venous 7.35 (7.34-7.37)
[2024-05-05] MEDS ORDERED: Scopolamine Hydrobromide Patch TOP ONE (07:10)
--- NOTE | 2024-05-05 08:00 | NUR ---
TRANSFER TO ICU PT BROUGHT TO ICU 10 AT THIS TIME. PT CURRENTLY ON BIPAP. HE IS MINIMALLY RESPONSIVE TO PAINFUL STIMULI. PT CLAMPS JAW DURING ORAL SUCTIONING. PT HAS LARGE AMOUNT OF SECRETIONS. SCOPALAMINE PATCH BEHIND EAR. SINUS ON MONITOR WITH RATE IN 90S. BP STABLE. NEW ATTENDS PLACED. CECUM TUBE PRESENT. SURROUNDING TISSUE RED WITH PURULENT DISCHARGE. PHOTO PLACED IN CHART AND NEW DRESSING IN PLACE. ABG DONE. BIPAP SETTINGS CHANGED TO 20/8/55%. RR 22. DR DOOLEY AT BEDSIDE. COLLEGE PROFESSOR CONSULTED.
--- NOTE | 2024-05-05 08:07 | NUR ---
Transfer to ICU Pt lethargic. Wearing bipap. Pt mother reporting pt continually drools. Pt w/ heavy amount of secretions w/ thick ramirez sputum being suctioned & thick snot coming from pt nose. MD w/ order for scopalamine patch. Patch placed behind pt's R ear. MDs to bedside w/ order for transfer to ICU for closer monitoring & possible intubation if needed. Pt mother confirms full code status, stating "I don't want him to be intubated, but if it needs to be done, yes, I am okay with it." Report given to accepting BEAM DYER OPERATOR. Pt transferred to ICU-10. Pt mother reports need to leave for a few minutes, states will return after pt is settled in ICU.
[2024-05-05 08:15] LABS: PCO2 Arterial 82.2 mmHg (35-45); PO2 Arterial 81.6 mmHg (80-100)
[2024-05-05 08:18] LABS: pH Blood Arterial 7.18 (7.35-7.45)
[2024-05-05] MEDS ORDERED: Piperacillin/Tazobactam Sod 3.375 GM in NS 100 ML IV SCH (08:28)
[2024-05-05] MEDS ORDERED: Vancomycin HCL 1,750 MG in NS 500 ML IV ONE (08:35)
[2024-05-05] MEDS ORDERED: Azithromycin 500 MG in NS 250 ML IV SCH (09:00)
[2024-05-05] MEDS ORDERED: Enoxaparin 40 MG/0.4 ML SYR SC SCH (09:00)
[2024-05-05] MEDS ORDERED: CefTRIAXone Sodium 1,000 MG in NS 100 ML IV SCH (09:00)
[2024-05-05 09:05] LABS: Base Excess Venous 0.8 mmol/L; Bicarbonate Venous 24.8 mmol/L (24.0-30.0); PCO2 Venous 69.4 mmHg (38-42)
[2024-05-05] MEDS ORDERED: NS 250 ML IV PRN (09:05)
[2024-05-05 09:06] LABS: pH Blood Venous 7.22 (7.34-7.37)
[2024-05-05 10:39] LABS: Base Excess Venous 2.2 mmol/L; Bicarbonate Venous 25.7 mmol/L (24.0-30.0); PCO2 Venous 65.9 mmHg (38-42)
[2024-05-05 10:42] LABS: pH Blood Venous 7.26 (7.34-7.37)
--- NOTE | 2024-05-05 11:08 | NUR ---
UPDATE BIPAP REMAINS IN PLACE WITH RATE 18, 16/5/50%. HE REMAINS DROWSY AND OCCASIONALLY SITS UP IN BED. PT'S MOTHER AT BEDSIDE AND PROVIDES COMFORT.
--- NOTE | 2024-05-05 15:11 | NUR ---
UPDATE PT'S MOTHER ALEX REMAINS AT BEDSIDE. SHE ASSISTS WITH CARE SUCH CECOSTOMY CLEANING/DRESSING CHANGES AND ADLS. PT REMAINS DROWSY AND MAKES MOVEMENTS WITH VERBAL STIMULI AND DURING CARE. TOLERATING BIPAP WELL.
--- NOTE | 2024-05-05 16:25 | NUR ---
UPDATE PT IS AWAKE. REQUESTING BIPAP MASK OFF. RT AT BEDSIDE AND TRANSITIONED TO AIRVO 40L/53%. TOLERATING WELL AT THIS TIME. PLAN FOR VBG IN 1 HR. PT ANSWERS IN SHORT PHRASES. PT REQUESTING TV REMOTE. PT'S MOTHER REMAINS AT BEDSIDE PROVIDING ASSISTANCE.
[2024-05-05 17:27] LABS: Base Excess Venous 2.3 mmol/L; Bicarbonate Venous 26.1 mmol/L (24.0-30.0); PCO2 Venous 63.4 mmHg (38-42)
[2024-05-05 17:28] LABS: pH Blood Venous 7.27 (7.34-7.37)
[2024-05-05] MEDS ORDERED: dexmedeTOMIDine 100 ML IV SCH (17:40)
--- NOTE | 2024-05-05 18:02 | NUR ---
SHIFT SUMMARY PT WAS ON BIPAP MOST OF THE DAY. HE IS CURRENTLY ON AIRVO 40L/53% AND TOLERATING WELL. MENTATION IMPROVED THIS EVENING. PT A&OX2. HE ANSWERS QUESTIONS IN SHORT PHRASES. SPEECH MUMBLED AT TIMES AND MOSTLY SPEAKS TO FAMILY AT BEDSIDE. HE HAS MODERATE ORAL SECRETIONS WHICH MOTHER IS ASSISTING WITH YANKEUR AND ORAL CARE. SINUS ON MONITOR WITH RATE IN 70S-90S. BP STABLE THROUGHOUT THE SHIFT. PT IS INCONTINENT AT BASELINE, ATTENDS IN PLACE. CECOSTOMY DRESSING C/D/I AND MANAGED BY PT'S MOTHER. RECOMMENDED FOR PT TO WEAR BIPAP TONIGHT PER PROVIDER. PT'S MOTHER EXPRESSES CONCERN REGARDING ANXIETY/AGITATION DUE TO THE MASK AND REQUESTING AVAILABLE MEDICATION AND SITTER. PRECEDEX AVAILABLE. BED IN LOW POSITION, CALL LIGHT WITHIN REACH AND FAMILY AT BEDSIDE.
--- NOTE | 2024-05-05 19:50 | NUR ---
ASSUME CARE: BEDSIDE REPORT RECIEVED FROM DAYSHIFT RN. PT A/O TO SELF, PERSON AND PLACE. SPEECH MUMBLED, PT HAS A LARGE AMOUNT OF THIN SECRETIONS, PT HAS HX OF SPINA BIFIDA. PT ON AIRVO, SPO2>90%. SBP 120s, MAP>65. MONITOR SHOWS SR, RATE 80s-90s. PT DENIES PAIN. PT SECUM TUBE DRESSING C/D/I. MOTHER AT BEDSIDE AND PREFERS TO ASSIST WITH CARE. PRECEDEX STARTED FOR PT TO TOLERATE THE BIPAP OVERNIGHT, SEE FLOWSHEET FOR TITRATIONS. WILL UPDATE NEEDED.
[2024-05-05] MEDS ORDERED: Vancomycin HCL 1,500 MG in NS 250 ML IV SCH (21:00)
[2024-05-06] VITALS (43 sets, daily range): BP systolic 84–128; BP diastolic 48–93
[2024-05-06 04:17] LABS: Hematocrit 20.4 % (37.0-53.0); Mean Corpuscular HGB 19.9 pg (26.0-34.0); Mean Corpuscular HGB Conc 27.5 g/dL (31.5-36.5); Mean Corpuscular Volume 73 fL (80-100); Mean Platelet Volume 11.6 fL (9.1-12.4); NRBC ABSOLUTE 0.06 K/mm3 (0.00-0.02); NRBC Auto 1.4 /100 WBC (0.0-0.2); Platelet Count 218 K/mm3 (150-400); RDW Coefficient Variation 17.3 % (11.7-14.2); RDW Standard Deviation 46.2 fL (35.1-46.3); Red Blood Cell Count 2.81 M/mm3 (4.30-5.90); White Blood Cell Count 4.36 K/mm3 (4.00-11.30)
[2024-05-06 04:20] LABS: Hemoglobin 5.6 g/dL (13.5-17.5)
[2024-05-06 04:36] LABS: BAND PERCENT MAN 2 % (0-8); BASOPHILS PERCENT MAN 0 % (0-2); EOSINOPHILS PERCENT MAN 0 % (0-6); LYMPHOCYTES % ATYPICAL MANUAL 4 % (0-0); LYMPHOCYTES ABSOLUTE MAN 1.17 K/mm3 (0.84-5.20); LYMPHOCYTES PERCENT MAN 23 % (21-46); MONOCYTES ABSOLUTE MAN 0.26 K/mm3 (0.16-1.47); MONOCYTES PERCENT MAN 6 % (4-13); NEUTROPHILS ABSOLUTE MAN 2.92 K/mm3 (1.96-9.15); SEG NEUTROPHILS PERCENT MAN 65 % (41-73); TOTAL CELLS COUNTED 100
[2024-05-06 04:45] LABS: Albumin, Blood 2.1 g/dL (3.4-5.0); Albumin/Globulin Ratio 0.6 (0.8-1.8); Bilirubin, Total 0.3 mg/dL (0.1-1.0); Bun/Creatinine Ratio 51.6 (12.0-20.0); Calcium, Blood 7.9 mg/dL (8.5-10.1); Creatinine, Blood 0.95 mg/dL (0.60-1.20); Globulin, Blood 3.8 g/dL (2.2-4.0); Potassium, Blood 4.5 mmol/L (3.5-5.5); Total Protein, Blood 5.9 g/dL (6.4-8.2)
--- NOTE | 2024-05-06 05:12 | NUR ---
SHIFT SUMMARY: PT ALERT TO VERBAL STIMULI, ABLE TO ANSWER QUESTIONS, WAKES AT TIMES TO ASK FOR WATER. RASS -2 TO +1, PRECEDEX GTT INFUSING, SEE FLOWSHEET FOR TITRATIONS. PT ABLE TO TOLERATE BIPAP THROUGHOUT THE NIGHT, SETTINGS 14/6 AT 45%. SPO2.95%. SBP 80s-100s, MAP>65. MONITOR SHOWS SINUS ALYSSA TO SINUS RYTHM, RATE 50-70s. CECOSTOMY SITE DRESSING C/D/I. WILL REPORT TO ONCOMING RN.
[2024-05-06] MEDS ORDERED: Sod Ferric Gluc Complx/Sucrose 125 MG in NS 100 ML IV SCH (09:10)
[2024-05-06 13:52] LABS: Hematocrit 27.4 % (37.0-53.0)
[2024-05-06 15:02] LABS: Stool Occult Bld Immuno 1 Positive (NEGATIVE)
--- NOTE | 2024-05-06 17:49 | NUR ---
SHIFT SUMMARY PT DID WELL THIS SHIFT. PT HAS REMAINED AWAKE AND ALERT MOST OF THIS SHIFT. PT TITRATED OFF BIPAP TO AIRVO THIS MORNING, THEN TO 5L [place] NC. PT HAS TOLERATED THIS WELL THROUGHOUT THE SHIFT AND HAS REMAINED ON [place] NC. PT ABLE TO FOLLOW SIMPLE COMMANDS AND ANSWER SIMPLE QUESTIONS. PT WITH SOME WEIGHT BEARING WITH TRANSF[place] [facility] [place]. PT WITH LARGE LIQUID BROWN BM AFTER STERILE FLUID FLUSH VIA C TUBE PER PT MOTHER. C TUBE SITE DRESSING CHANGED AND REMAINS C/D/I. PT TAKING IN PO INTAKE THIS EVENING WELL. VITAL SIGNS REMAIN STABLE. PG AND PIV'S REMAIN IN PLACE. NS INFUSING TKO. PT MOTHER AT BESIDE MOST OF THIS SHIFT AND HAS BEEN VERY INVOLVED WITH PATIENT CARE ACTIVITIES. WILL CONTINUE TO MONITOR AND REPORT OFF TO ONCOMING RN.
--- NOTE | 2024-05-06 20:47 | NUR ---
ASSUME CARE: BEDSIDE REPORT RECIEVED FROM DAYSHIFT RN. PT A/O TO SELF, PERSON, PLACE AND ABLE TO MAKE NEEDS KNOWN. PT MUCH MORE ALERT AND TALKATIVE TONIGHT. SP02>90% ON 5L NC, PT TOOK NC OFF AT ONE POINT AND DESAT TO 86-88%, BUT ABLE TO RECOVER QUICKLY. SBP 120s, MAP >65. PT DENIES PAIN. MONITOR SHOWS SINUS ARRYTHMIA, RATE 60s. PT INCONTINTENT, ATTENDS AND PADS IN PLACE. CECOSTOMY DRESSING C/D/I. WILL UPDATE NEEDED.
[2024-05-06 21:14] LABS: Vancomycin, Trough 31.4 ug/mL (5.0-10.0)
[2024-05-07] VITALS (21 sets, daily range): BP systolic 111–139; BP diastolic 60–76
[2024-05-07 03:26] LABS: Hematocrit 25.4 % (37.0-53.0); Hemoglobin 7.6 g/dL (13.5-17.5); Mean Corpuscular HGB 21.2 pg (26.0-34.0); Mean Corpuscular HGB Conc 29.9 g/dL (31.5-36.5); Mean Corpuscular Volume 71 fL (80-100); Mean Platelet Volume 10.8 fL (9.1-12.4); NRBC ABSOLUTE 0.13 K/mm3 (0.00-0.02); NRBC Auto 1.3 /100 WBC (0.0-0.2); Platelet Count 237 K/mm3 (150-400); RDW Coefficient Variation 17.7 % (11.7-14.2); RDW Standard Deviation 44.8 fL (35.1-46.3); Red Blood Cell Count 3.58 M/mm3 (4.30-5.90)
[2024-05-07 03:46] LABS: Albumin, Blood 2.2 g/dL (3.4-5.0); Albumin/Globulin Ratio 0.6 (0.8-1.8); Bilirubin, Total 0.4 mg/dL (0.1-1.0); Bun/Creatinine Ratio 53.3 (12.0-20.0); Calcium, Blood 7.5 mg/dL (8.5-10.1); Creatinine, Blood 0.83 mg/dL (0.60-1.20); Globulin, Blood 3.6 g/dL (2.2-4.0); Potassium, Blood 3.8 mmol/L (3.5-5.5); Total Protein, Blood 5.8 g/dL (6.4-8.2)
[2024-05-07 04:01] LABS: BAND PERCENT MAN 3 % (0-8); BASOPHILS PERCENT MAN 0 % (0-2); EOSINOPHILS PERCENT MAN 0 % (0-6); LYMPHOCYTES % ATYPICAL MANUAL 2 % (0-0); LYMPHOCYTES ABSOLUTE MAN 1.95 K/mm3 (0.84-5.20); LYMPHOCYTES PERCENT MAN 17 % (21-46); MONOCYTES ABSOLUTE MAN 1.13 K/mm3 (0.16-1.47); MONOCYTES PERCENT MAN 11 % (4-13); MYELOCYTE PERCENT MAN 2 % (0-0); PLASMA CELLS PERCENT MAN 1 % (0-0); SEG NEUTROPHILS PERCENT MAN 64 % (41-73); TOTAL CELLS COUNTED 100
[2024-05-07] MEDS ORDERED: Vancomycin HCL 1,250 MG in NS 250 ML IV SCH (05:00)
--- NOTE | 2024-05-07 05:16 | NUR ---
SHIFT SUMMARY: PT A/O TO SELF, PERSON, PLACE. PT WILL MAKE NEEDS KNOWN. SP02>95% ON 5L NC, PT WILL TAKE NC OFF AT DESAT TO 85-88%, BUT RECOVERS QUICKLY. PT HAS HAD THICK BROWN SECRETIONS THROUGHOUT THE NIGHT, FREQUENT ORAL CARE AND SUCTIONING NEEDED. CECOTOMY DRESSING C/D/I. NO OTHER CHANGED FROM ASSUME CARE NOTE. WILL REPORT TO ONCOMING RN.
[2024-05-07] MEDS ORDERED: Pantoprazole Sodium 40 MG Injection IV SCH ×2 (06:00→21:00)
[2024-05-07 13:34] LABS: Hematocrit 25.4 % (37.0-53.0); Hemoglobin 7.6 g/dL (13.5-17.5)
--- NOTE | 2024-05-07 15:13 | NUR ---
DR DOOLEY UPDATE PT MOTHER NOTED CHANGE IN STOOL LEAKAGE COLOR NOTED AROUND C TUBE SITE TO ABD. THIS RN VISUALIZED CHANGE IN STOOL FROM PRIOR BROWN COLORATION TO BLACK AND TARRY APPEARING LEAKAGE AT C TUBE SITE. DR DOOLEY NOTIFIED AND WILL PUT IN FURTHER ORDERS.
[2024-05-07] MEDS ORDERED: Ampicillin Sod/Sulbactam Sod 3 GM in NS 100 ML IV SCH (16:00)
--- NOTE | 2024-05-07 17:22 | NUR ---
SHIFT SUMMARY PT HAS REMAINED ALERT AND ORIENTED WHEN AWAKE THIS SHIFT. PT HAS BEEN ABLE TO ANSWER SIMPLE QUESTIONS AND MAKE NEEDS KNOWN. PT MOTHER AT BEDSIDE MOST OF THIS SHIFT AND ASSISTED WITH PT CARE ACTIVITIES. PT WITH POOR APPETITE, BUT ABLE TO TAKE IN SOME PO INTAKE. PT ON ROOM AIR MOST OF THIS SHIFT, BUT PLACED BACK ON 2L O2 NC THIS EVENING WITH MORE EPISODES OF NAPPING. VITAL SIGNS STABLE. PG AND PIV'S IN PLACE, SALINE LOCKED. PT WITH ATTENDS IN PLACE, PT INCONTINENT OF URINE THIS SHIFT. C TUBE IN PLACE WITH BLACK TARRY LEAKING NOTED AT SITE. DR MERRITT CAME TO SEE PT THIS AFTERNOON AND PLANS FOR EGD ON 05/08/24. WILL CONTINUE TO MONITOR AND REPORT OFF TO ONCOMING RN.
--- NOTE | 2024-05-07 18:37 | NUR ---
SHIFT SUMMARY/ICU DOWNGRADE PATIENT ARRIVED TO THE FLOOR AOX3 ABLE TO MAKE NEEDS KNOWN NO SOB AND NO PAIN. HE IS SINUS HE IS ON 2L NC AND LUNG SOUNDS ARE CLEAR. HE HAS CHROINC HAND AND FEET CONTRACTIONS. HIS PULSES ARE STRONG ON ALL EXTREMETIES AND HIS CAP REFILL IS LESS THAN 3 SECS. HE DOES HAVE GI ACCESS POINT/TUBE ON HIS RIGHT ABDOMEN. HIS COCCYX DOES HAVE A LARGE HEALED SCAR. HIS MOTHER IS AT BEDSIDE AND QUESTIONS HAVE BEEN ANSWERED.
[2024-05-07 19:04] LABS: Hematocrit 25.3 % (37.0-53.0); Hemoglobin 7.7 g/dL (13.5-17.5)
[2024-05-08] VITALS (8 sets, daily range): BP systolic 112–146; BP diastolic 68–89
[2024-05-08 02:36] LABS: Hematocrit 24.8 % (37.0-53.0); Hemoglobin 7.6 g/dL (13.5-17.5)
[2024-05-08 02:55] LABS: Albumin, Blood 2.4 g/dL (3.4-5.0); Albumin/Globulin Ratio 0.7 (0.8-1.8); Bilirubin, Total 0.3 mg/dL (0.1-1.0); Bun/Creatinine Ratio 47.7 (12.0-20.0); Calcium, Blood 7.8 mg/dL (8.5-10.1); Creatinine, Blood 0.82 mg/dL (0.60-1.20); Globulin, Blood 3.4 g/dL (2.2-4.0); Potassium, Blood 2.9 mmol/L (3.5-5.5); Total Protein, Blood 5.8 g/dL (6.4-8.2)
[2024-05-08] MEDS ORDERED: Potassium Chloride 40 MEQ in NS 250 ML IV ONE (03:40)
[2024-05-08] MEDS ORDERED: Potassium Chl 20MEQ/Water100ML 100 ML IV SCH ×2 (03:40→09:00)
--- NOTE | 2024-05-08 06:22 | NUR ---
shift summary Pt is Alert able to communicate in simple pharses. Pt has not slept at all during the shift refused melatonin when offered. Pt has sat up in bed with arms resting on pillows and 2-3 pillows behind back/head pt however would not allow staff to put pillows under hips or feet. Pt is incontient of urine and wears attends w/ pad inside. Pt on 2L NC T/O the night. Satting 90% and above. VSS. C tube in place w/ black tarry leakage noted this morning around 0530, cleansed area and replaced dressing. Pt is NPO this am for EGD. Pt refused oral care of anykind. Will continue w/ plan of care. Bed in lowest postion, call light in reach. WiLl report to oncoming RN.
[2024-05-08] MEDS ORDERED: Lactated Ringer's 1,000 ML IV SCH (07:40)
[2024-05-08] MEDS ORDERED: propofoL 0 ML IV ONE (11:12)
[2024-05-08] MEDS ORDERED: propofoL 20 ML IV ONE (11:28)
--- NOTE | 2024-05-08 12:19 | NUR ---
05/08/24 1219 Shayy Heredia MAC CASE WITH ZACKARY MCGUIRE; SEE ANESTHESIA RECORDS.
--- NOTE | 2024-05-08 15:25 | NUR ---
Pt is sitting up in bed, mom at bedside. STates they have no needs at this time. Second potassium infusion was started via powerglide IV in the [facility].
[2024-05-08] MEDS ORDERED: Omeprazole 20 MG CapCR PO SCH (16:30)
--- NOTE | 2024-05-08 18:41 | NUR ---
SHIFT SUMMARY PATIENT AOX3 ABLE TO MAKE NEEDS KNOWN. HE DENIES PAIN OR SOB HE REMAINS ON 2 L NC HE DOES HAVE COUGH AND PRODUCTIVE SPUTUM HE AND HIS MOTHER AT BEDSIDE USE THE SUCTION. HE WENT FOR EGD TO DAY. POST OP VITAL STABLE AND PATIENT TOLERATING HIS FOOD. PATIENT MOTHER AT ASSISTED WITH CLEANING THE PATIENT THORUGHOUT THE DAY. PATIENT DID HAVE A LARGE BM TODAY.
[2024-05-09 03:54] VITALS: BP 144/85
[2024-05-09 04:12] LABS: Hematocrit 25.3 % (37.0-53.0); Hemoglobin 7.6 g/dL (13.5-17.5); Mean Corpuscular HGB 21.7 pg (26.0-34.0); Mean Corpuscular Volume 72 fL (80-100); Mean Platelet Volume 10.9 fL (9.1-12.4); NRBC ABSOLUTE 0.04 K/mm3 (0.00-0.02); NRBC Auto 0.3 /100 WBC (0.0-0.2); Platelet Count 290 K/mm3 (150-400); RDW Coefficient Variation 19.1 % (11.7-14.2); RDW Standard Deviation 48.4 fL (35.1-46.3); Red Blood Cell Count 3.51 M/mm3 (4.30-5.90); White Blood Cell Count 11.74 K/mm3 (4.00-11.30)
[2024-05-09 04:35] LABS: Albumin, Blood 2.4 g/dL (3.4-5.0); Albumin/Globulin Ratio 0.7 (0.8-1.8); Bilirubin, Total 0.3 mg/dL (0.1-1.0); Bun/Creatinine Ratio 36.3 (12.0-20.0); Calcium, Blood 7.5 mg/dL (8.5-10.1); Creatinine, Blood 0.66 mg/dL (0.60-1.20); Globulin, Blood 3.3 g/dL (2.2-4.0); Potassium, Blood 3.8 mmol/L (3.5-5.5); Total Protein, Blood 5.7 g/dL (6.4-8.2)
[2024-05-09 04:40] LABS: BAND PERCENT MAN 3 % (0-8); BASOPHILS PERCENT MAN 0 % (0-2); EOSINOPHILS ABSOLUTE MAN 0.23 K/mm3 (0.00-0.68); EOSINOPHILS PERCENT MAN 2 % (0-6); LYMPHOCYTES ABSOLUTE MAN 1.87 K/mm3 (0.84-5.20); LYMPHOCYTES PERCENT MAN 16 % (21-46); METAMYELOCYTE ABSOLUTE MAN 0.46 K/mm3 (0.00-0.00); METAMYELOCYTE PERCENT MAN 4 % (0-0); MONOCYTES ABSOLUTE MAN 1.29 K/mm3 (0.16-1.47); MONOCYTES PERCENT MAN 11 % (4-13); MYELOCYTE ABSOLUTE MAN 0.35 K/mm3 (0.00-0.00); MYELOCYTE PERCENT MAN 3 % (0-0); NEUTROPHILS ABSOLUTE MAN 7.51 K/mm3 (1.96-9.15); SEG NEUTROPHILS PERCENT MAN 61 % (41-73); TOTAL CELLS COUNTED 100
--- NOTE | 2024-05-09 06:26 | NUR ---
SHIFT SUMMARY NO ACUTE EVENTS OVERNIGHT
[2024-05-09 08:20] VITALS: BP 126/90
[2024-05-09 15:08] VITALS: BP 132/87
--- NOTE | 2024-05-09 17:45 | NUR ---
SHIFT SUMMARY A&Ox3, COMMUNICATES NEEDS INTERMITTENTLY, AT TIMES DOES NOT RESPOND VERBALLY TO STAFF, ABLE TO FOLLOW SIMPLE COMMANDS AND ANSWER SIMPLE QUESTIONS. PT WITH SOME WEIGHT BEARING WITH TRANSFER TO C THIS SHIFT. PT WITH LARGE LIQUID BROWN BM AFTER STERILE FLUID FLUSH VIA C TUBE PER PT MOTHER. C TUBE SITE DRESSING CHANGED AND REMAINS C/D/I. PT WITH MINIMAL PO INTAKE THIS SHIFT, MAJORITY OF INTAKE WAS ENSURES. BP STABLE, HR 80's, DENIES CP/PRESSURE. SpO2> 90% ON RA-1.5L, DENIES SOB, PT WITH INTERMITTENT PRODUCTIVE COUGH. CAREGIVER & MOTHER AT BEDSIDE THROUGHOUT SHIFT PROVIDING MAJORITY OF CARE. NO C/O PAIN. NO OTHER EVENTS, WILL REPORT TO ONCOMING RN.
[2024-05-09 20:31] VITALS: BP 124/77
[2024-05-09] MEDS ORDERED: Amoxicillin/Clavulanate K 875 MG Tab PO SCH (21:00)
[2024-05-10 00:26] VITALS: BP 145/88
--- NOTE | 2024-05-10 02:29 | NUR ---
SHIFT SUMMARY NO ACUTE CHANGES. PT PRACTICED USE OF FLUTTER VALVE. 0-1L NC OVERNIGHT.
[2024-05-10 06:16] LABS: Hematocrit 26.7 % (37.0-53.0); Hemoglobin 7.8 g/dL (13.5-17.5); Mean Corpuscular HGB 21.5 pg (26.0-34.0); Mean Corpuscular HGB Conc 29.2 g/dL (31.5-36.5); Mean Corpuscular Volume 74 fL (80-100); Mean Platelet Volume 10.5 fL (9.1-12.4); Platelet Count 318 K/mm3 (150-400); RDW Coefficient Variation 21.7 % (11.7-14.2); RDW Standard Deviation 50.4 fL (35.1-46.3); Red Blood Cell Count 3.63 M/mm3 (4.30-5.90)
[2024-05-10 06:48] LABS: NRBC ABSOLUTE 0.02 K/mm3 (0.00-0.02); NRBC Auto 0.2 /100 WBC (0.0-0.2)
[2024-05-10 06:55] LABS: Albumin, Blood 2.5 g/dL (3.4-5.0); Albumin/Globulin Ratio 0.7 (0.8-1.8); Bilirubin, Total 0.2 mg/dL (0.1-1.0); Calcium, Blood 7.2 mg/dL (8.5-10.1); Creatinine, Blood 0.59 mg/dL (0.60-1.20); Globulin, Blood 3.4 g/dL (2.2-4.0); Potassium, Blood 3.8 mmol/L (3.5-5.5); Total Protein, Blood 5.9 g/dL (6.4-8.2)
[2024-05-10 07:22] LABS: BAND PERCENT MAN 4 % (0-8); BASOPHILS PERCENT MAN 0 % (0-2); EOSINOPHILS ABSOLUTE MAN 0.51 K/mm3 (0.00-0.68); EOSINOPHILS PERCENT MAN 4 % (0-6); LYMPHOCYTES ABSOLUTE MAN 2.94 K/mm3 (0.84-5.20); LYMPHOCYTES PERCENT MAN 23 % (21-46); METAMYELOCYTE ABSOLUTE MAN 0.76 K/mm3 (0.00-0.00); METAMYELOCYTE PERCENT MAN 6 % (0-0); MONOCYTES ABSOLUTE MAN 0.64 K/mm3 (0.16-1.47); MONOCYTES PERCENT MAN 5 % (4-13); NEUTROPHILS ABSOLUTE MAN 7.93 K/mm3 (1.96-9.15); SEG NEUTROPHILS PERCENT MAN 58 % (41-73); TOTAL CELLS COUNTED 100
[2024-05-10 09:13] VITALS: BP 124/89
--- NOTE | 2024-05-10 12:15 | NUR ---
Pt said he didn't want the lunch tray the hospital provided. He also declined the ensure. Said he has his coffee and his caregiver is out making his lunch. He also has water at bedside. RN notified.
[2024-05-10 14:38] VITALS: BP 137/93
--- NOTE | 2024-05-10 18:20 | NUR ---
SHIFT SUMMARY: NEURO: PATIENT IS EASILY ABLE TO MAKE HIS NEEDS KNOWN. PATIENT'S CAREGIVER REPORTS THAT HIS STRENGTH HAS IMPROVED EVIDENCED BY PATIENT ABLE TO ASSIST WITH REPOSITIONING AND IS INDEPENDENT WITH MANY ADLS. PATIENT WILL DECLINE CARE FROM STAFF AT TIMES IN PREFERENCE OF WAITING FOR HIS CAREGIVER OR MOTHER. CARDIAC: PATIENT DENIED CHEST PAIN OR PRESSURE. VITALS STABLE WITH HR IN THE 80S AND SBP IN THE 120-130S. STRONG PULSES IN ALL 4 EXTREMETIES. RESPIRATORY: PATIENT STABLE ON ROOM AIR WITH SPO2 90-92%. PATIENT USING FLUTTER VALVE AND PRODUCING SPUTUM. UNABLE TO OBTAIN SPUTUM SAMPLE. DENIES SHORTNESS OF BREATH OR DIFFICULTY BREATHING. GI/: PATIENT INCONTINENT OF URINE. ATTENDS IN PLACE. CECOSTOMY IS TO BE FLUSHED TOMORROW PER PATIENT'S MOTHER. NO BLACK STOOL NOTED LEAKING FROM SITE. PATIENT TOLERATING PUREED FOOD BROUGHT IN BY FAMILY. PATIENT TOLERATING ENSURES. PO PRILOSEC ADMINISTERED PER ORDERS. FAMILY/CAREGIVER KNOWLEDEGEABLE ON HOW TO GIVE THIS MEDICATION. PSYCHSOCIAL: PATIENT CALM AND COOPERATIVE ALTHOUGH HE WILL AT TIMES DEFER CARE TO CAREGIVER OR MOTHER. PATIENT VISITED BY HIS CAREGIVER, MOTHER AND SISTER TODAY. ALL ARE ENCOURAGING OF THE PATIENT.
[2024-05-10 20:33] VITALS: BP 132/82
[2024-05-11 00:16] VITALS: BP 131/83
[2024-05-11 04:32] VITALS: BP 133/83
[2024-05-11 04:47] LABS: Hematocrit 25.6 % (37.0-53.0); Hemoglobin 7.6 g/dL (13.5-17.5); Mean Corpuscular HGB Conc 29.7 g/dL (31.5-36.5); Mean Corpuscular Volume 74 fL (80-100); Mean Platelet Volume 11.2 fL (9.1-12.4); NRBC ABSOLUTE 0.03 K/mm3 (0.00-0.02); NRBC Auto 0.2 /100 WBC (0.0-0.2); Platelet Count 328 K/mm3 (150-400); RDW Coefficient Variation 23.9 % (11.7-14.2); RDW Standard Deviation 52.4 fL (35.1-46.3); Red Blood Cell Count 3.46 M/mm3 (4.30-5.90); White Blood Cell Count 12.05 K/mm3 (4.00-11.30)
[2024-05-11 04:59] LABS: Bun/Creatinine Ratio 30.4 (12.0-20.0); Calcium, Blood 7.6 mg/dL (8.5-10.1); Creatinine, Blood 0.66 mg/dL (0.60-1.20); Potassium, Blood 4.3 mmol/L (3.5-5.5)
[2024-05-11 05:22] LABS: BASOPHILS PERCENT MAN 0 % (0-2); EOSINOPHILS ABSOLUTE MAN 0.72 K/mm3 (0.00-0.68); EOSINOPHILS PERCENT MAN 6 % (0-6); LYMPHOCYTES ABSOLUTE MAN 2.77 K/mm3 (0.84-5.20); LYMPHOCYTES PERCENT MAN 23 % (21-46); METAMYELOCYTE ABSOLUTE MAN 0.24 K/mm3 (0.00-0.00); METAMYELOCYTE PERCENT MAN 2 % (0-0); MONOCYTES ABSOLUTE MAN 1.08 K/mm3 (0.16-1.47); MONOCYTES PERCENT MAN 9 % (4-13); MYELOCYTE ABSOLUTE MAN 0.12 K/mm3 (0.00-0.00); MYELOCYTE PERCENT MAN 1 % (0-0); SEG NEUTROPHILS PERCENT MAN 59 % (41-73); TOTAL CELLS COUNTED 100
--- NOTE | 2024-05-11 06:33 | NUR ---
PT MOSTLY STABLE THROUGHOUT THE SHIFT, PT DID REQUIRE SUPPLMENTAL O2 INTERMITTENTLY WHILE SLEEPING D/T LOW SPO2 SATS. OTHER VITAL SIGNS REMAIN WNL. PT AOX4 AND ABLE TO MAKE NEEDS KNOWN. PT USES CALL LIGHT APPROPRIATELY. PT WILL DENY CARES SUCH BRIEF CHANGES BUT DID ALLOW THAT THIS MORNING AFTER SEVERAL ATTEMPTS MADE. PT IS PLEASANT AND COOPERATIVE WITH STAFF, BUT IS WANTING HIS CAREGIVER TO THE DAILY CARES. PT DID REFUSE FOR THE CECOSTOMY TO BE REDRESSED WITH SPLIT GAUZE, AGAIN WANTING HIS CAREGIVER TO ADDRESS THAT. PT HAS HAD NO BM PER RECTUM THIS SHIFT.
[2024-05-11 07:30] VITALS: BP 131/81
--- NOTE | 2024-05-11 11:10 | NUR ---
DESATURATION THROUGH THE NIGHT: PER OXIMETRY MONITOR DURING BENCH MOLDER DESATURATED TO 86% WAS PLACED ON 2L VIA NC FOR SPO2 EQUAL TO OR GREATER THAN 92%.
[2024-05-11 11:46] VITALS: BP 124/90
[2024-05-11] MEDS ORDERED: OMEP20ER PO (14:06)
[2024-05-11] MEDS ORDERED: LACT PO (14:06)
[2024-05-11] MEDS ORDERED: AMOCLA875 PO (14:07)
--- NOTE | 2024-05-11 18:32 | NUR ---
DISCHARGED PATIENT AND MOTHER RAYMOND BEDSIDE UNDERSTAND ALL DISCHARGE INSTRUCTIONS AND FOLLOWUP INFO AND DISCHARGE MEDICATIONS. THEY HAVE NO FURTHER QUESTIONS. PATIENT VITALS ALL STABLE AND O2 SAT GREATER THAN 925 on room air. ALL THREE IVs WERE REMOVED WITH NO COMPLICATIONS.
== END 2024-05-11 15:48 | disposition home or self-care (01) | DRG 871 ==
LOC: ER 10:18 → PCU 13:41 → ICUE 13:41 → PCU 15:13 → ICUE 05-05 07:45 → PCU 05-07 17:45
PROVIDERS: Family Medicine; Internal Medicine; Student in an Organized Health Care Education/Training Program; ADMIT Hospitalist
PROC: 3E03329 Introduction of Other Anti-infective into Peripheral Vein, Percutaneous Approach (ICD-10-PCS; principal; 2024-05-04)
PROC: 30233N1 Transfusion of Nonautologous Red Blood Cells into Peripheral Vein, Percutaneous Approach (ICD-10-PCS; 2024-05-05)
PROC: 5A0935A Assistance with Respiratory Ventilation, Less than 24 Consecutive Hours, High Flow/Velocity Cannula (ICD-10-PCS; 2024-05-07)
PROC: 5A09357 Assistance with Respiratory Ventilation, Less than 24 Consecutive Hours, Continuous Positive Airway Pressure (ICD-10-PCS; 2024-05-07)
PROC: 0DB78ZX Excision of Stomach, Pylorus, Via Natural or Artificial Opening Endoscopic, Diagnostic (ICD-10-PCS; 2024-05-08)
DX: A41.89 Other specified sepsis (principal); G93.41 Metabolic encephalopathy; J96.01 Acute respiratory failure with hypoxia; G93.5 Compression of brain; J96.02 Acute respiratory failure with hypercapnia; K22.11 Ulcer of esophagus with bleeding; J12.1 Respiratory syncytial virus pneumonia; J69.0 Pneumonitis due to inhalation of food and vomit; N17.9 Acute kidney failure, unspecified; K92.1 Melena; R65.20 Severe sepsis without septic shock; D63.8 Anemia in other chronic diseases classified elsewhere; Z96.659 Presence of unspecified artificial knee joint; K59.09 Other constipation; K22.2 Esophageal obstruction; Q05.7 Lumbar spina bifida without hydrocephalus; Z98.890 Other specified postprocedural states; Z91.040 Latex allergy status; Z79.899 Other long term (current) drug therapy; Z87.891 Personal history of nicotine dependence; Z68.38 Body mass index [BMI] 38.0-38.9, adult; Z93.3 Colostomy status; Z90.49 Acquired absence of other specified parts of digestive tract; Z98.2 Presence of cerebrospinal fluid drainage device
CPT/HCPCS: 0202U; 31720; 36415; 36430; 36600; 71045; 74177; 80048; 80053; 80202; 82274; 82607; 82728; 82746; 82803; 82947; 83540; 83550; 83605; 83690; 83735; 85014; 85018; 85025; 85045; 86850; 86900; 86901; 86923; 87040; 88305; 88312; 93005; 93010; 94660; 94762; 96361; 96365-59; 96367; 96375; 99285-25; A9270; C1751; J0295; J0456; J0696; J1650; J1720; J1885; J2060; J2470; J2543; J2704; J2916; J3370; J3480; J7030; J7040; J7050; J7120; P9016; Q9967

== ENCOUNTER 2024-10-05 03:26 | Day surgery (SDC) | payer OTHER ==
[~2024-10-05 03:26] MED LIST: AMOCLA875 PO; BISA5EC PO; LACT PO; OMEP20ER PO
== END 2024-10-05 23:00 | disposition home or self-care (01) ==
LOC: WOUND 03:26
DX: S31.000D Unspecified open wound of lower back and pelvis without penetration into retroperitoneum, subsequent encounter (principal); Q05.9 Spina bifida, unspecified; Z91.040 Latex allergy status
CPT/HCPCS: A6213; G0463

== ENCOUNTER 2024-10-12 01:38 | Day surgery (SDC) | payer OTHER | END 2024-10-12 23:00 | disposition home or self-care (01) | LOC: WOUND 01:38 | DX: L89.153 Pressure ulcer of sacral region, stage 3 (principal); L08.9 Local infection of the skin and subcutaneous tissue, unspecified; Q05.4 Unspecified spina bifida with hydrocephalus; N31.9 Neuromuscular dysfunction of bladder, unspecified; Z98.2 Presence of cerebrospinal fluid drainage device | CPT/HCPCS: A6213; G0463 ==

== ENCOUNTER 2024-10-19 04:53 | Day surgery (SDC) | payer OTHER | END 2024-10-19 23:49 | disposition home or self-care (01) | LOC: WOUND 04:53 | DX: S31.000D Unspecified open wound of lower back and pelvis without penetration into retroperitoneum, subsequent encounter (principal); X58.XXXD Exposure to other specified factors, subsequent encounter; N31.9 Neuromuscular dysfunction of bladder, unspecified; Q05.4 Unspecified spina bifida with hydrocephalus; Z98.2 Presence of cerebrospinal fluid drainage device | CPT/HCPCS: A6213; G0463 ==

== ENCOUNTER 2024-10-26 02:14 | Day surgery (SDC) | payer OTHER | END 2024-10-26 23:00 | disposition home or self-care (01) | LOC: WOUND 02:14 | DX: S31.000D Unspecified open wound of lower back and pelvis without penetration into retroperitoneum, subsequent encounter (principal); L98.422 Non-pressure chronic ulcer of back with fat layer exposed; Q05.9 Spina bifida, unspecified | CPT/HCPCS: A6213; G0463 ==

== ENCOUNTER 2024-11-02 02:46 | Day surgery (SDC) | payer OTHER | END 2024-11-02 23:00 | disposition home or self-care (01) | LOC: WOUND 02:46 | DX: L89.153 Pressure ulcer of sacral region, stage 3 (principal); Q05.9 Spina bifida, unspecified | CPT/HCPCS: A6213; G0463 ==

== ENCOUNTER 2024-11-09 02:19 | Day surgery (SDC) | payer OTHER | END 2024-11-09 22:00 | disposition home or self-care (01) | LOC: WOUND 02:19 | DX: L89.153 Pressure ulcer of sacral region, stage 3 (principal); Q05.4 Unspecified spina bifida with hydrocephalus; Z98.2 Presence of cerebrospinal fluid drainage device | CPT/HCPCS: A6213; Q4151 ==

== ENCOUNTER 2024-11-16 01:00 | Day surgery (SDC) | payer OTHER | END 2024-11-16 23:00 | disposition home or self-care (01) | LOC: WOUND 01:00 | DX: L89.153 Pressure ulcer of sacral region, stage 3 (principal); Q05.9 Spina bifida, unspecified | CPT/HCPCS: Q4151 ==

== ENCOUNTER 2024-11-24 13:04 | Day surgery (SDC) | payer OTHER ==
[~2024-11-24] VITALS: Ht 152.4 cm; Wt 77.0 kg
[~2024-11-24 13:04] MED LIST changes: +Glycopyrrolate 0.2 MG/ML 1MLVIAL ONE; +Ondansetron HCl 2 MG / ML 2ML Vial ONE; +ePHEDrine Sulfate 50 MG/ML 1ML Injection ONE
[2024-11-24] MEDS ORDERED: Benzocaine Oral Spray 0.5ML UD ONE (13:17)
--- NOTE | 2024-11-24 16:12 | NUR ---
11/24/24 1612 Gayla Acosta PT IV INFILTRATED DURING THE COLONOSCOPY, THIS RN ATTEMPED TO START ANOTHER IV BUT WAS NOT SUCCESSFUL AFTER 2 ATTEMPTS. PT IV WAS D/C IN THE OPERATIVE ROOM AND IV SITE WAS WNL. SITE WAS DRESSED WITH GAUZE AND COBAN. PT AWOKE NEAR THE END OF THE COLONOSCOPY AND HE DENIED PAIN/DISCOMFORT. PT WAS CONSISTENTLY ASKED DURING THE PROCEDURE IF HE WAS DOING OKAY AND EACH TIME HE DENIED DISCOMFORT. PROCEDURE ENDED AND PT WAS TAKEN INTO STEPDOWN WHERE 2 SETS OF VITALS WERE TAKEN AND D/C INSTUCTIONS WERE GIVEN TO BOTH PT AND PT MOTHER. PATIENT DENIED PAIN IN RECOVERY AND ABD WAS SOFT.
[2024-11-24 16:18] VITALS: BP 134/83
--- NOTE | 2024-11-24 16:22 | NUR ---
11/24/24 1622 Gayla Acosta IV WAS D/C IN OPERATIVE ROOM. IV SITE WAS WNL AND DRESSED WITH COBAN/GAUZE.
== END 2024-11-24 15:45 | disposition home or self-care (01) ==
LOC: ORSCSDS 13:04
PROVIDERS: Specialist
PROC: 0DB98ZX Excision of Duodenum, Via Natural or Artificial Opening Endoscopic, Diagnostic (ICD-10-PCS; principal; 2024-11-24 14:45)
PROC: 0DBM8ZX Excision of Descending Colon, Via Natural or Artificial Opening Endoscopic, Diagnostic (ICD-10-PCS; principal; 2024-11-24 14:45)
PROC: 0DB58ZX Excision of Esophagus, Via Natural or Artificial Opening Endoscopic, Diagnostic (ICD-10-PCS; principal; 2024-11-24 14:45)
DX: K22.10 Ulcer of esophagus without bleeding (principal); K31.7 Polyp of stomach and duodenum; K44.9 Diaphragmatic hernia without obstruction or gangrene; D12.4 Benign neoplasm of descending colon; K64.4 Residual hemorrhoidal skin tags; K64.8 Other hemorrhoids; Z93.3 Colostomy status; K59.2 Neurogenic bowel, not elsewhere classified; Q05.9 Spina bifida, unspecified; R56.9 Unspecified convulsions
CPT/HCPCS: 88305; 88342; A9270; J0461; J2003; J2405; J2704; J7120

== ENCOUNTER 2024-11-30 01:11 | Day surgery (SDC) | payer OTHER ==
[~2024-11-30 01:11] MED LIST changes: -Glycopyrrolate 0.2 MG/ML 1MLVIAL ONE; -Ondansetron HCl 2 MG / ML 2ML Vial ONE; -ePHEDrine Sulfate 50 MG/ML 1ML Injection ONE
== END 2024-11-30 23:00 | disposition home or self-care (01) ==
LOC: WOUND 01:11
DX: L98.422 Non-pressure chronic ulcer of back with fat layer exposed (principal); Q05.4 Unspecified spina bifida with hydrocephalus; N31.9 Neuromuscular dysfunction of bladder, unspecified; Z98.2 Presence of cerebrospinal fluid drainage device
CPT/HCPCS: G0463

== ENCOUNTER 2024-12-07 01:38 | Day surgery (SDC) | payer OTHER | END 2024-12-07 22:33 | disposition home or self-care (01) | LOC: WOUND 01:38 | DX: L98.421 Non-pressure chronic ulcer of back limited to breakdown of skin (principal); Q05.4 Unspecified spina bifida with hydrocephalus; Z98.2 Presence of cerebrospinal fluid drainage device; Z87.828 Personal history of other (healed) physical injury and trauma | CPT/HCPCS: G0463 ==